=== PATIENT | male | born 1945 | race Caucasian/White ===

== ENCOUNTER 2016-08-17 19:06 | Emergency (ER) | payer OTHER ==
[2016-08-17] MEDS ORDERED: KETOROLAC 30 MG/ML VIAL ONE (19:47)
[2016-08-17] MEDS ORDERED: SODIUM CHLORIDE 0.9% 2,000 ML ONE (19:47)
[2016-08-17] MEDS ORDERED: ONDANSETRON 4 MG VIAL ONE (19:47)
== END 2016-08-18 00:09 | disposition home or self-care (01) ==
LOC: ER 19:06
DX: R55 Syncope and collapse (principal)
CPT/HCPCS: 36415; 71010; 80053; 81003; 82553; 83735; 84484; 85025; 85610; 85730; 93005; 96361; 96374; 96375; 99284; J1885; J2405